=== PATIENT | male | born 1965 | race African-American/Black ===

== ENCOUNTER 2017-07-02 10:39 | Outpatient (CLI) | payer OTHER ==
[~2017-07-02 10:39] MED LIST: Iopamidol 370 76% 100 ML VIAL ONE
--- NOTE | 2017-07-02 16:41 | CT ---
CT PULMONARY ANGIOGRAM WITH IV CONTRAST AND 3D POSTPROCESSING: Date: 07/02/17 HISTORY: Prostate cancer. Left-sided chest pain and rib pain. IV CONTRAST: 98 mL [id number] injected intravenously. FINDINGS: No filling defects are seen in the contrast-opacified pulmonary arterial vasculature to suggest pulm onary embolism. The thoracic aorta is well opacified without aneurysm or dissection. No pleural or p ericardial effusions are identified. No pneumothoraces, focal areas of consolidation, lung nodules o r masses are seen. There are degenerative changes in the spine. There is a peripherally calcified sm all lesion in the left upper kidney, which is stable from 04/05/16. IMPRESSION: 1. No CT evidence of pulmonary embolism. 2. A bone scan would be helpful to evaluate left-sided rib pain. POS: [facility]
== END 2017-07-02 10:40 | disposition home or self-care (01) ==
LOC: SCSCT 10:39
PROVIDERS: ATTEND Internal Medicine Medical Oncology
DX: C61 Malignant neoplasm of prostate (principal); R07.81 Pleurodynia
CPT/HCPCS: 71275; 80053; 82248; 83615; 84100; 84153; 84550

== ENCOUNTER 2017-09-27 10:34 | Day surgery (SDC) | payer OTHER, SELFPAY ==
[2017-09-27] MEDS ORDERED: Sodium Chloride 0.9% 30 ML ONE (10:59)
[2017-09-27] MEDS ORDERED: ADMIXTURE FEE IVPB SCH (11:30)
[2017-09-27] MEDS ORDERED: DOCETAXEL IVPB SCH (11:30)
[2017-09-27] MEDS ORDERED: SODIUM CHLORIDE IVPB SCH (11:30)
[2017-09-27] MEDS ORDERED: Ondansetron 2MG/ML MDV 10 MG, Dexamethasone 10 MG, Admixture Fee 1 EACH in Sodium Chlor... IVP SCH (11:30)
[2017-09-27 11:31] VITALS: BP 128/80; TEMP 98.3
== END 2017-09-27 15:29 | disposition home or self-care (01) ==
LOC: ONC/OP 10:34
PROVIDERS: ATTEND Internal Medicine Medical Oncology
DX: Z51.11 Encounter for antineoplastic chemotherapy (principal); C61 Malignant neoplasm of prostate; I25.10 Atherosclerotic heart disease of native coronary artery without angina pectoris; I10 Essential (primary) hypertension; M19.90 Unspecified osteoarthritis, unspecified site; Z87.891 Personal history of nicotine dependence; Z79.52 Long term (current) use of systemic steroids; Z79.82 Long term (current) use of aspirin; Z79.01 Long term (current) use of anticoagulants; Z79.899 Other long term (current) drug therapy; Z80.1 Family history of malignant neoplasm of trachea, bronchus and lung; Z95.1 Presence of aortocoronary bypass graft; Z98.890 Other specified postprocedural states
CPT/HCPCS: 36415; 80053; 82248; 83615; 84100; 84153; 84550; 96413; A4216; J1100; J2405; J7050; J9171

== ENCOUNTER 2017-10-18 10:57 | Day surgery (SDC) | payer OTHER, MEDICAID ==
[2017-10-18] MEDS ORDERED: Ondansetron PF 4 MG/2 ML Vial SLOW IVP SCH (12:00)
[2017-10-18] MEDS ORDERED: DOCEtaxel 160 MG in Sodium Chloride 0.9% 250 ML 250 ML IVPB SCH (12:00)
[2017-10-18] MEDS ORDERED: Dexamethasone 10 MG/ML VIAL SLOW IVP SCH (12:00)
[2017-10-18] MEDS ORDERED: Sodium Chloride 0.9% 30 ML ONE (12:16)
[2017-10-18 12:59] VITALS: BP 108/58; TEMP 98.5
== END 2017-10-18 14:23 | disposition home or self-care (01) ==
LOC: ONC/OP 10:57
PROVIDERS: ATTEND Internal Medicine Medical Oncology
DX: Z51.11 Encounter for antineoplastic chemotherapy (principal); C61 Malignant neoplasm of prostate; I25.10 Atherosclerotic heart disease of native coronary artery without angina pectoris; I10 Essential (primary) hypertension; M19.90 Unspecified osteoarthritis, unspecified site; Z87.891 Personal history of nicotine dependence; Z79.52 Long term (current) use of systemic steroids; Z79.82 Long term (current) use of aspirin; Z79.01 Long term (current) use of anticoagulants; Z79.899 Other long term (current) drug therapy; Z80.1 Family history of malignant neoplasm of trachea, bronchus and lung; Z95.1 Presence of aortocoronary bypass graft; Z98.890 Other specified postprocedural states
CPT/HCPCS: 96375; 96413; J1100; J2405; J7050; J9171

== ENCOUNTER 2017-10-27 08:49 | Emergency (ER) | payer OTHER, SELFPAY ==
[2017-10-27 09:58] LABS: ALT (SGPT) 24 U/L (8-55); AST (SGOT) 20 U/L (5-34); Albumin 3.6 g/dL (3.5-5.0); Alkaline Phosphatase 49 U/L (40-150); Anion Gap 9 mmol/L (10-20); BUN (Urea Nitrogen) 11 mg/dL (8.4-25.7); Bilirubin, Total 0.2 mg/dL (0.2-1.2); Calc. Creatinine Clearance 0 mL/min (70-130); Calcium 8.6 mg/dL (7.8-10.44); Carbon Dioxide 31 mmol/L (22-29); Chloride 103 mmol/L (98-107); Estimated GFR-MDRD Greater than 90; Globulin 2.6 g/dL (2.4-3.5); Glucose 90 mg/dL (70-105); Potassium 3.7 mmol/L (3.5-5.1); Protein, Total 6.2 g/dL (6.0-8.3); Sodium 139 mmol/L (136-145)
[2017-10-27 10:25] LABS: Band 12 % (5-11); Lymphocytes 45 % (21-51); MDiff Complete? YES; Mean Corpuscular Hemoglobin 31.9 pg (27.0-31.0); Mean Corpuscular Volume 96.7 fl (80.0-94.0); Mean Platelet Volume 8.1 fL (7.4-10.4); Metamyelocyte 6 % (0-0); Monocytes 17 % (0-10); Myelocyte 1 % (0-0); Neutrophil 18 % (42-75); PLT Morphology Comment Appears Adequate; Platelet Count 203 thou/uL (130-400); RBC Distribution Width 13.5 % (11.5-14.5); RBC Morphology Normal; Reactive Lymphocytes 1 % (0-10); Red Blood Cell (RBC) Count 3.44 mill/uL (4.70-6.10); Reflex for Review?? YES; White Blood Cell (WBC) Count 1.9 thou/uL (4.8-10.8)
[2017-10-27 10:48] LABS: Bilirubin Negative (Negative); Blood, Urine Negative (Negative); Clarity Clear (Clear); Glucose, Urine (Dipstick) Negative (Negative); Leukocyte Negative (Negative); Nitrite Negative (Negative); Protein, Urine (Dipstick) Negative (Neg-Trace); Urobilinogen 0.2 mg/dL (0.2-1.0); pH, Urine 7.5 (5.0-9.0)
--- NOTE | 2017-10-27 11:12 | RAD ---
PORTABLE CHEST: Date: 10/27/17 PROVIDED CLINICAL HISTORY: Cough and congestion. FINDINGS: Comparison with 09/10/16. Cardiac and mediastinal silhouette is within normal limits. Median sternotomy changes are seen. Emphy sematous changes are suspected. No definite focal consolidation, pleural fluid, or pneumothorax appar ent. IMPRESSION: No evidence for an acute cardiopulmonary process. POS: [facility]
[2017-10-27] MEDS ORDERED: Cefepime 2 GM/10 ML SYR ONE (12:04)
[2017-10-27] MEDS ORDERED: Acetaminophen 325 MG TAB ONE (12:11)
== END 2017-10-27 13:10 | disposition home or self-care (01) ==
LOC: ERS 08:49
DX: J06.9 Acute upper respiratory infection, unspecified (principal); D70.9 Neutropenia, unspecified; I25.10 Atherosclerotic heart disease of native coronary artery without angina pectoris; I10 Essential (primary) hypertension; Z87.891 Personal history of nicotine dependence; Z79.899 Other long term (current) drug therapy; Z79.82 Long term (current) use of aspirin
CPT/HCPCS: 36415; 71045; 80053; 81003; 83605; 85025; 85060; 87040; 87086; 87804; 96361; 96374; J0692

== ENCOUNTER 2017-11-13 11:21 | Day surgery (SDC) | payer SELFPAY ==
[2017-11-13] MEDS ORDERED: Sodium Chloride 0.9% 50 ML ONE (11:27)
[2017-11-13] MEDS ORDERED: DOCEtaxel 160 MG in Sodium Chloride 0.9% 250 ML 250 ML IVPB SCH ×2 (11:45→13:00)
[2017-11-13] MEDS ORDERED: Ondansetron HCl/PF 4 MG/2 ML Vial SLOW IVP SCH (12:00)
[2017-11-13] MEDS ORDERED: Dexamethasone 10 MG/ML VIAL SLOW IVP SCH (12:00)
== END 2017-11-13 14:13 | disposition home or self-care (01) ==
LOC: ONC/OP 11:21
PROVIDERS: ATTEND Internal Medicine Medical Oncology
DX: Z51.11 Encounter for antineoplastic chemotherapy (principal); C61 Malignant neoplasm of prostate; I25.10 Atherosclerotic heart disease of native coronary artery without angina pectoris; I10 Essential (primary) hypertension; M19.90 Unspecified osteoarthritis, unspecified site; Z79.01 Long term (current) use of anticoagulants; Z79.82 Long term (current) use of aspirin; Z79.899 Other long term (current) drug therapy; Z87.891 Personal history of nicotine dependence
CPT/HCPCS: 96375; 96413; A4216; J1100; J2405; J7050; J9171

== ENCOUNTER 2017-12-27 10:07 | Outpatient (CLI) | payer OTHER | END 2017-12-27 10:08 | disposition home or self-care (01) | LOC: BICMAMMO 10:07 | PROVIDERS: ATTEND Internal Medicine Medical Oncology | DX: M89.8X9 Other specified disorders of bone, unspecified site (principal); C61 Malignant neoplasm of prostate; R69 Illness, unspecified | CPT/HCPCS: 77080 ==

== ENCOUNTER 2021-11-15 13:12 | Inpatient (IN) | payer MEDICARE ==
[~2021-11-15 13:12] MED LIST changes: +Heparin 1,000 UNITS/ML VIAL ONE; -Iopamidol 370 76% 100 ML VIAL ONE
[2021-11-15 13:45] LABS: #Eosinphils 0.1 thou/uL (0.0-0.7); #Lymphocytes 1.6 thou/uL (1.20-3.40); #Monocytes 0.4 thou/uL (0.11-0.59); #Neutrophils 2.2 thou/uL (1.40-6.50); %Basophils 0.6 % (0.0-1.0); %Eosinophils 1.3 % (0.0-10.0); %Lymphocytes 36.8 % (21.0-51.0); %Monocytes 10.2 % (0.0-10.0); %Neutrophils 51.1 % (42.0-75.0); Hemoglobin 13.4 g/dL (14.0-18.0); Mean Corpuscular Volume 99.9 fL (78.0-98.0); Mean Platelet Volume 8.8 fL (7.4-10.4); Platelet Count 208 thou/uL (130-400); RBC Distribution Width 13.2 % (11.5-14.5); Red Blood Cell (RBC) Count 4.18 mill/uL (4.70-6.10); White Blood Cell (WBC) Count 4.2 thou/uL (4.8-10.8)
[2021-11-15 14:03] LABS: ALT (SGPT) 46 U/L (8-55); AST (SGOT) 34 U/L (5-34); Albumin 3.7 g/dL (3.5-5.0); Alkaline Phosphatase 61 U/L (40-110); Anion Gap 12 mmol/L (10-20); BUN (Urea Nitrogen) 16 mg/dL (8.4-25.7); Bilirubin, Total 0.5 mg/dL (0.2-1.2); Calc. Creatinine Clearance 0 mL/min (70-130); Calcium 8.2 mg/dL (7.8-10.44); Carbon Dioxide 23 mmol/L (22-29); Chloride 108 mmol/L (98-107); Globulin 2.6 g/dL (2.4-3.5); Glucose 103 mg/dL (70-105); Potassium 4.3 mmol/L (3.5-5.1); Protein, Total 6.3 g/dL (6.0-8.3); Sodium 139 mmol/L (136-145)
[2021-11-15] MEDS ORDERED: cefTRIAXone\\ROCEPHIN 2 GM VIAL ONE (14:12)
[2021-11-15] MEDS ORDERED: methylPREDNISolone Sod Succ/PF 125 MG/2 ML VIAL ONE (14:12)
[2021-11-15] MEDS ORDERED: Furosemide 20 MG/2 ML VIAL ONE (14:15)
[2021-11-15] MEDS ORDERED: Acetaminophen 325 MG TAB PO PRN (16:30)
[2021-11-15] MEDS ORDERED: Ondansetron PF 4 MG/2 ML Vial IVP PRN (16:30)
[2021-11-15] MEDS ORDERED: HYDROcodone/Acetaminophen 5/325 mg Tablet PO PRN (16:31)
[2021-11-15] MEDS ORDERED: Metoprolol Tartrate 100 MG TAB PO SCH (16:45)
[2021-11-15] MEDS ORDERED: Diltiazem HCl SR 90 mg Capsule PO SCH ×2 (16:45→21:00)
[2021-11-15 17:15] LABS: Troponin I 0.022 ng/mL (< 0.028)
[2021-11-15 19:00] VITALS: BMI 29.7
[2021-11-15] MEDS: Apixaban 5 MG TAB PO SCH (20:08)
[2021-11-15] MEDS: Atorvastatin Calcium 40 MG TAB PO SCH (20:09)
[2021-11-15 20:12] LABS: Troponin I 0.017 ng/mL (< 0.028)
[2021-11-16 00:07] LABS: SARS-CoV-2 PCR by NAA Not Detected (NotDetected)
[2021-11-16 05:06] LABS: #Monocytes 0.3 thou/uL (0.11-0.59); #Neutrophils 5.3 thou/uL (1.40-6.50); %Basophils 0.2 % (0.0-1.0); %Eosinophils 0.1 % (0.0-10.0); %Lymphocytes 14.6 % (21.0-51.0); %Monocytes 4.1 % (0.0-10.0); Hemoglobin 13.5 g/dL (14.0-18.0); Mean Corpuscular HGB CONC 31.5 g/dL (32.0-36.0); Mean Corpuscular Hemoglobin 31.2 pg (27.0-31.0); Mean Platelet Volume 8.4 fL (7.4-10.4); Platelet Count 223 thou/uL (130-400); RBC Distribution Width 12.8 % (11.5-14.5); Red Blood Cell (RBC) Count 4.32 mill/uL (4.70-6.10); White Blood Cell (WBC) Count 6.6 thou/uL (4.8-10.8)
[2021-11-16 05:31] LABS: ALT (SGPT) 35 U/L (8-55); AST (SGOT) 19 U/L (5-34); Albumin 3.5 g/dL (3.5-5.0); Alkaline Phosphatase 56 U/L (40-110); Anion Gap 11 mmol/L (10-20); BUN (Urea Nitrogen) 13 mg/dL (8.4-25.7); Bilirubin, Total 0.3 mg/dL (0.2-1.2); Calc. Creatinine Clearance 135 mL/min (70-130); Calcium 8.1 mg/dL (7.8-10.44); Carbon Dioxide 28 mmol/L (22-29); Chloride 104 mmol/L (98-107); Globulin 2.6 g/dL (2.4-3.5); Glucose 130 mg/dL (70-105); Potassium 3.7 mmol/L (3.5-5.1); Protein, Total 6.1 g/dL (6.0-8.3); Sodium 139 mmol/L (136-145)
[2021-11-16 05:47] LABS: Thyroid Stimulating Hormone 0.3617 uIU/mL (0.35-4.94)
[2021-11-16] MEDS: HYDROcodone/Acetaminophen 5/325 mg Tablet PO PRN ×2 (08:58→20:54)
[2021-11-16] MEDS: Aspirin 325 mg Enteric Coated Tablet PO SCH (08:59)
[2021-11-16] MEDS: Apixaban 5 MG TAB PO SCH ×2 (08:59→20:52)
[2021-11-16] MEDS: Multivitamin W/ Minerals 1 TAB PO SCH (08:59)
[2021-11-16] MEDS ORDERED: SAW PALMETTO 80 MG PO SCH (09:00)
[2021-11-16] MEDS: Lisinopril 10 MG TAB PO SCH (09:00)
[2021-11-16] MEDS: Metoprolol Tartrate 100 MG TAB PO SCH ×2 (09:00→20:52)
[2021-11-16] MEDS: Tamsulosin HCl 0.4 MG CAP PO SCH (09:00)
[2021-11-16] MEDS: Diltiazem HCl SR 90 mg Capsule PO SCH ×2 (09:00→20:51)
[2021-11-16] MEDS ORDERED: Furosemide 20 MG/2 ML VIAL SLOW IVP SCH (15:00)
[2021-11-16] MEDS: Atorvastatin Calcium 40 MG TAB PO SCH (20:51)
[2021-11-16] MEDS: Amiodarone 200 MG TAB PO SCH (20:51)
[2021-11-16] MEDS ORDERED: Vancomycin 1 GM in Premix Bag 1 BAG IVPB SCH (21:50)
[2021-11-16] MEDS: VANCOMYCIN 2 GRAM/400 ML BAG 2 GM in Premix Bag 1 BAG IVPB SCH (22:41)
[2021-11-17] MEDS: Furosemide 20 MG/2 ML VIAL SLOW IVP SCH ×2 (05:02→14:31)
[2021-11-17] MEDS: Tamsulosin HCl 0.4 MG CAP PO SCH (08:58)
[2021-11-17] MEDS: Diltiazem HCl SR 90 mg Capsule PO SCH ×2 (08:58→19:50)
[2021-11-17] MEDS: Amiodarone 200 MG TAB PO SCH ×2 (08:58→19:50)
[2021-11-17] MEDS: Aspirin 325 mg Enteric Coated Tablet PO SCH (08:58)
[2021-11-17] MEDS: Lisinopril 10 MG TAB PO SCH (08:58)
[2021-11-17] MEDS: Multivitamin W/ Minerals 1 TAB PO SCH (08:58)
[2021-11-17] MEDS: Metoprolol Tartrate 100 MG TAB PO SCH ×2 (08:59→19:51)
[2021-11-17] MEDS: HYDROcodone/Acetaminophen 5/325 mg Tablet PO PRN ×2 (08:59→23:20)
[2021-11-17] MEDS: Apixaban 5 MG TAB PO SCH ×2 (09:00→19:51)
[2021-11-17] MEDS: VANCOMYCIN 2 GRAM/400 ML BAG 2 GM in Premix Bag 1 BAG IVPB SCH (11:23)
[2021-11-17] MEDS ORDERED: Sodium Chloride 0.9% 500 ML IV SCH ×2 (17:00→17:30)
[2021-11-17] MEDS: CEFAZOLIN 2 GM, IV Admixture Fee-Chemo 1 UNITS in Sodium Chloride 0.9% 100 ML IVPB SCH ×2 (17:16→23:17)
[2021-11-17] MEDS: Atorvastatin Calcium 40 MG TAB PO SCH (19:51)
[2021-11-18] MEDS ORDERED: PROPOFOL 20 ML ONE (08:31)
[2021-11-18] MEDS ORDERED: PROPOFOL 200 MG/20 ML VIAL ONE (08:31)
[2021-11-18] MEDS: CEFAZOLIN 2 GM, IV Admixture Fee-Chemo 1 UNITS in Sodium Chloride 0.9% 100 ML IVPB SCH ×2 (09:59→18:37)
[2021-11-18] MEDS: Apixaban 5 MG TAB PO SCH ×2 (09:59→21:23)
[2021-11-18] MEDS: Amiodarone 200 MG TAB PO SCH ×2 (09:59→21:23)
[2021-11-18] MEDS: Aspirin 325 mg Enteric Coated Tablet PO SCH (09:59)
[2021-11-18] MEDS: Tamsulosin HCl 0.4 MG CAP PO SCH (10:00)
[2021-11-18] MEDS: Metoprolol Tartrate 100 MG TAB PO SCH ×2 (10:00→22:00)
[2021-11-18] MEDS: Multivitamin W/ Minerals 1 TAB PO SCH (10:00)
[2021-11-18] MEDS: Lisinopril 10 MG TAB PO SCH (10:00)
[2021-11-18] MEDS: Diltiazem HCl SR 90 mg Capsule PO SCH (10:07)
[2021-11-18] MEDS: Atorvastatin Calcium 40 MG TAB PO SCH (21:22)
[2021-11-19] MEDS: CEFAZOLIN 2 GM, IV Admixture Fee-Chemo 1 UNITS in Sodium Chloride 0.9% 100 ML IVPB SCH ×4 (00:14→23:46)
[2021-11-19 04:34] LABS: #Basophils 0.1 thou/uL (0.0-0.2); #Eosinphils 0.1 thou/uL (0.0-0.7); #Lymphocytes 1.9 thou/uL (1.20-3.40); #Monocytes 0.6 thou/uL (0.11-0.59); #Neutrophils 1.9 thou/uL (1.40-6.50); %Basophils 2.1 % (0.0-1.0); %Eosinophils 2.1 % (0.0-10.0); %Lymphocytes 41.2 % (21.0-51.0); %Monocytes 12.4 % (0.0-10.0); %Neutrophils 42.3 % (42.0-75.0); Hemoglobin 12.8 g/dL (14.0-18.0); Mean Corpuscular HGB CONC 32.3 g/dL (32.0-36.0); Mean Corpuscular Hemoglobin 32.6 pg (27.0-31.0); Mean Platelet Volume 8.3 fL (7.4-10.4); Platelet Count 203 thou/uL (130-400); Red Blood Cell (RBC) Count 3.93 mill/uL (4.70-6.10); White Blood Cell (WBC) Count 4.5 thou/uL (4.8-10.8)
[2021-11-19 04:52] LABS: Anion Gap 10 mmol/L (10-20); BUN (Urea Nitrogen) 18 mg/dL (8.4-25.7); Calc. Creatinine Clearance 106 mL/min (70-130); Calcium 7.8 mg/dL (7.8-10.44); Carbon Dioxide 28 mmol/L (22-29); Chloride 105 mmol/L (98-107); Glucose 87 mg/dL (70-105); Potassium 3.9 mmol/L (3.5-5.1); Sodium 139 mmol/L (136-145)
[2021-11-19] MEDS: Aspirin 325 mg Enteric Coated Tablet PO SCH (08:21)
[2021-11-19] MEDS: Amiodarone 200 MG TAB PO SCH ×2 (08:21→20:19)
[2021-11-19] MEDS: Apixaban 5 MG TAB PO SCH ×2 (08:21→20:19)
[2021-11-19] MEDS: Tamsulosin HCl 0.4 MG CAP PO SCH (08:22)
[2021-11-19] MEDS: Lisinopril 10 MG TAB PO SCH (08:22)
[2021-11-19] MEDS: Metoprolol Tartrate 100 MG TAB PO SCH ×2 (08:22→20:19)
[2021-11-19] MEDS: Multivitamin W/ Minerals 1 TAB PO SCH (08:22)
[2021-11-19] MEDS: Atorvastatin Calcium 40 MG TAB PO SCH (20:19)
[2021-11-19] MEDS: Famotidine 20 MG TAB PO SCH (20:19)
[2021-11-19] MEDS: HYDROcodone/Acetaminophen 5/325 mg Tablet PO PRN (23:49)
[2021-11-20 05:10] LABS: #Eosinphils 0.1 thou/uL (0.0-0.7); #Lymphocytes 1.8 thou/uL (1.20-3.40); #Monocytes 0.5 thou/uL (0.11-0.59); #Neutrophils 2.7 thou/uL (1.40-6.50); %Basophils 0.2 % (0.0-1.0); %Eosinophils 2.6 % (0.0-10.0); %Lymphocytes 34.9 % (21.0-51.0); %Monocytes 9.3 % (0.0-10.0); %Neutrophils 52.9 % (42.0-75.0); Hemoglobin 13.3 g/dL (14.0-18.0); Mean Corpuscular HGB CONC 31.8 g/dL (32.0-36.0); Mean Corpuscular Hemoglobin 32.2 pg (27.0-31.0); Mean Platelet Volume 8.1 fL (7.4-10.4); Platelet Count 235 thou/uL (130-400); RBC Distribution Width 13.1 % (11.5-14.5); Red Blood Cell (RBC) Count 4.15 mill/uL (4.70-6.10); White Blood Cell (WBC) Count 5.1 thou/uL (4.8-10.8)
[2021-11-20 05:30] LABS: Anion Gap 11 mmol/L (10-20); BUN (Urea Nitrogen) 17 mg/dL (8.4-25.7); Calc. Creatinine Clearance 122 mL/min (70-130); Calcium 8.1 mg/dL (7.8-10.44); Carbon Dioxide 28 mmol/L (22-29); Chloride 105 mmol/L (98-107); Glucose 87 mg/dL (70-105); Sodium 140 mmol/L (136-145)
[2021-11-20] MEDS: CEFAZOLIN 2 GM, IV Admixture Fee-Chemo 1 UNITS in Sodium Chloride 0.9% 100 ML IVPB SCH ×2 (09:36→16:59)
[2021-11-20] MEDS: Spironolactone 25 MG TAB PO SCH (09:37)
[2021-11-20] MEDS: Amiodarone 200 MG TAB PO SCH ×2 (09:37→20:13)
[2021-11-20] MEDS: Aspirin 325 mg Enteric Coated Tablet PO SCH (09:38)
[2021-11-20] MEDS: Apixaban 5 MG TAB PO SCH ×2 (09:38→20:13)
[2021-11-20] MEDS: Famotidine 20 MG TAB PO SCH ×2 (09:38→20:13)
[2021-11-20] MEDS: Lisinopril 10 MG TAB PO SCH (09:39)
[2021-11-20] MEDS: Metoprolol Tartrate 100 MG TAB PO SCH ×2 (09:39→20:14)
[2021-11-20] MEDS: Multivitamin W/ Minerals 1 TAB PO SCH (09:39)
[2021-11-20] MEDS: Tamsulosin HCl 0.4 MG CAP PO SCH (09:40)
[2021-11-20] MEDS: Atorvastatin Calcium 40 MG TAB PO SCH (20:13)
[2021-11-21] MEDS: HYDROcodone/Acetaminophen 5/325 mg Tablet PO PRN ×3 (00:03→23:40)
[2021-11-21] MEDS: CEFAZOLIN 2 GM, IV Admixture Fee-Chemo 1 UNITS in Sodium Chloride 0.9% 100 ML IVPB SCH ×4 (00:04→23:41)
[2021-11-21 05:11] LABS: #Eosinphils 0.1 thou/uL (0.0-0.7); #Lymphocytes 1.8 thou/uL (1.20-3.40); #Monocytes 0.5 thou/uL (0.11-0.59); #Neutrophils 1.9 thou/uL (1.40-6.50); %Basophils 0.3 % (0.0-1.0); %Eosinophils 3.4 % (0.0-10.0); %Lymphocytes 41.4 % (21.0-51.0); %Neutrophils 42.9 % (42.0-75.0); Hemoglobin 13.7 g/dL (14.0-18.0); Mean Corpuscular HGB CONC 32.1 g/dL (32.0-36.0); Mean Corpuscular Hemoglobin 32.6 pg (27.0-31.0); Mean Platelet Volume 8.4 fL (7.4-10.4); Platelet Count 215 thou/uL (130-400); Red Blood Cell (RBC) Count 4.19 mill/uL (4.70-6.10); White Blood Cell (WBC) Count 4.4 thou/uL (4.8-10.8)
[2021-11-21 05:43] LABS: Anion Gap 10 mmol/L (10-20); BUN (Urea Nitrogen) 16 mg/dL (8.4-25.7); Calc. Creatinine Clearance 123 mL/min (70-130); Calcium 8.2 mg/dL (7.8-10.44); Carbon Dioxide 28 mmol/L (22-29); Chloride 106 mmol/L (98-107); Glucose 106 mg/dL (70-105); Potassium 3.9 mmol/L (3.5-5.1); Sodium 140 mmol/L (136-145)
[2021-11-21] MEDS: Lisinopril 10 MG TAB PO SCH (07:59)
[2021-11-21] MEDS: Metoprolol Tartrate 100 MG TAB PO SCH ×2 (07:59→21:29)
[2021-11-21] MEDS: Aspirin 325 mg Enteric Coated Tablet PO SCH (07:59)
[2021-11-21] MEDS: Spironolactone 25 MG TAB PO SCH (07:59)
[2021-11-21] MEDS: Amiodarone 200 MG TAB PO SCH ×2 (08:00→21:29)
[2021-11-21] MEDS: Apixaban 5 MG TAB PO SCH ×2 (08:00→21:29)
[2021-11-21] MEDS: Tamsulosin HCl 0.4 MG CAP PO SCH (08:00)
[2021-11-21] MEDS: Multivitamin W/ Minerals 1 TAB PO SCH (08:00)
[2021-11-21] MEDS: Famotidine 20 MG TAB PO SCH ×2 (08:00→21:29)
[2021-11-21] MEDS: Atorvastatin Calcium 40 MG TAB PO SCH (21:29)
[2021-11-22 05:35] LABS: #Eosinphils 0.2 thou/uL (0.0-0.7); #Lymphocytes 1.8 thou/uL (1.20-3.40); #Monocytes 0.5 thou/uL (0.11-0.59); %Basophils 0.5 % (0.0-1.0); %Eosinophils 4.2 % (0.0-10.0); %Lymphocytes 39.1 % (21.0-51.0); %Monocytes 11.8 % (0.0-10.0); %Neutrophils 44.4 % (42.0-75.0); Hemoglobin 12.9 g/dL (14.0-18.0); Mean Corpuscular HGB CONC 31.3 g/dL (32.0-36.0); Mean Corpuscular Hemoglobin 31.8 pg (27.0-31.0); Mean Platelet Volume 8.7 fL (7.4-10.4); Platelet Count 218 thou/uL (130-400); Red Blood Cell (RBC) Count 4.05 mill/uL (4.70-6.10); White Blood Cell (WBC) Count 4.6 thou/uL (4.8-10.8)
[2021-11-22 05:53] LABS: Anion Gap 9 mmol/L (10-20); BUN (Urea Nitrogen) 13 mg/dL (8.4-25.7); Calc. Creatinine Clearance 138 mL/min (70-130); Calcium 8.2 mg/dL (7.8-10.44); Carbon Dioxide 32 mmol/L (22-29); Chloride 103 mmol/L (98-107); Glucose 83 mg/dL (70-105); Potassium 4.2 mmol/L (3.5-5.1); Sodium 140 mmol/L (136-145)
[2021-11-22] MEDS: Aspirin 325 mg Enteric Coated Tablet PO SCH (08:45)
[2021-11-22] MEDS: Multivitamin W/ Minerals 1 TAB PO SCH (08:45)
[2021-11-22] MEDS: Amiodarone 200 MG TAB PO SCH ×2 (08:45→20:39)
[2021-11-22] MEDS: Tamsulosin HCl 0.4 MG CAP PO SCH (08:46)
[2021-11-22] MEDS: Spironolactone 25 MG TAB PO SCH (08:46)
[2021-11-22] MEDS: Metoprolol Tartrate 100 MG TAB PO SCH ×2 (08:46→20:39)
[2021-11-22] MEDS: Famotidine 20 MG TAB PO SCH ×2 (08:46→20:39)
[2021-11-22] MEDS: Apixaban 5 MG TAB PO SCH ×2 (08:46→20:39)
[2021-11-22] MEDS: CEFAZOLIN 2 GM, IV Admixture Fee-Chemo 1 UNITS in Sodium Chloride 0.9% 100 ML IVPB SCH ×2 (08:47→17:50)
[2021-11-22] MEDS: HYDROcodone/Acetaminophen 5/325 mg Tablet PO PRN (17:49)
[2021-11-22] MEDS: Atorvastatin Calcium 40 MG TAB PO SCH (20:39)
[2021-11-22] MEDS: Silver Sulfadiazine 50 GM TUBE TOP SCH (20:39)
[2021-11-23] MEDS: CEFAZOLIN 2 GM, IV Admixture Fee-Chemo 1 UNITS in Sodium Chloride 0.9% 100 ML IVPB SCH ×3 (00:02→16:15)
[2021-11-23] MEDS: HYDROcodone/Acetaminophen 5/325 mg Tablet PO PRN (00:03)
[2021-11-23 00:44] LABS: SARS-CoV-2 PCR by NAA Not Detected (NotDetected)
[2021-11-23] MEDS: Spironolactone 25 MG TAB PO SCH (08:37)
[2021-11-23] MEDS: Amiodarone 200 MG TAB PO SCH (08:38)
[2021-11-23] MEDS: Apixaban 5 MG TAB PO SCH (08:39)
[2021-11-23] MEDS: Famotidine 20 MG TAB PO SCH (08:39)
[2021-11-23] MEDS: Metoprolol Tartrate 100 MG TAB PO SCH (08:39)
[2021-11-23] MEDS: Aspirin 325 mg Enteric Coated Tablet PO SCH (08:39)
[2021-11-23] MEDS: Multivitamin W/ Minerals 1 TAB PO SCH (08:40)
[2021-11-23] MEDS: Silver Sulfadiazine 50 GM TUBE TOP SCH (08:41)
[2021-11-23] MEDS: Tamsulosin HCl 0.4 MG CAP PO SCH (08:42)
[2021-11-23 15:38] VITALS: BP 124/72; TEMP 98
[2021-11-23] MEDS ORDERED: Amiodarone 200 MG TAB PO SCH (21:00)
[2021-11-23] MEDS ORDERED: Metoprolol Tartrate 25 MG TAB PO SCH (21:00)
[2021-11-26] MEDS ORDERED: Amiodarone 200 MG TAB PO SCH (09:00)
== END 2021-11-23 17:21 | disposition home or self-care (01) | DRG 291 ==
LOC: ERS 13:12 → ERHOLD 15:06 → 2SW 18:30 → OBSVTOIN 11-16 15:10
PROVIDERS: ADMIT Internal Medicine; ATTEND Internal Medicine
PROC: 5A2204Z Restoration of Cardiac Rhythm, Single (ICD-10-PCS; principal; 2021-11-18)
PROC: B24BZZ4 Ultrasonography of Heart with Aorta, Transesophageal (ICD-10-PCS; 2021-11-18)
PROC: 02H633Z Insertion of Infusion Device into Right Atrium, Percutaneous Approach (ICD-10-PCS; 2021-11-21)
PROC: B548ZZA Ultrasonography of Superior Vena Cava, Guidance (ICD-10-PCS; 2021-11-21)
DX: I11.0 Hypertensive heart disease with heart failure (principal); I50.23 Acute on chronic systolic (congestive) heart failure; J96.00 Acute respiratory failure, unspecified whether with hypoxia or hypercapnia; J44.1 Chronic obstructive pulmonary disease with (acute) exacerbation; I48.21 Permanent atrial fibrillation; R78.81 Bacteremia; F17.210 Nicotine dependence, cigarettes, uncomplicated; E78.5 Hyperlipidemia, unspecified; N40.0 Benign prostatic hyperplasia without lower urinary tract symptoms; D53.9 Nutritional anemia, unspecified; I42.0 Dilated cardiomyopathy; I25.5 Ischemic cardiomyopathy; B95.61 Methicillin susceptible Staphylococcus aureus infection as the cause of diseases classified elsewhere; F10.10 Alcohol abuse, uncomplicated; I25.10 Atherosclerotic heart disease of native coronary artery without angina pectoris; Z79.899 Other long term (current) drug therapy; Z79.01 Long term (current) use of anticoagulants; Z95.1 Presence of aortocoronary bypass graft; Z28.311 Partially vaccinated for COVID-19; Z91.14 Patient's other noncompliance with medication regimen
CPT/HCPCS: 36415; 36569; 71045; 71046; 80048; 80053; 82607; 82746; 83605; 83880; 84443; 84484; 85025; 87040; 87077; 87149; 87186; 92960; 93005; 93306; 93312; 93798; 96365; 96375; C1751; G0378; J0690; J0696; J1644; J1940; J2704; J2930; J3370; J3490; J7030; J7620; U0003; U0005

== ENCOUNTER 2022-03-27 14:53 | Outpatient (CLI) | payer MEDICARE | END 2022-03-27 14:54 | disposition home or self-care (01) | LOC: SCSRAD 14:53 | PROVIDERS: ATTEND Family Medicine | DX: M54.16 Radiculopathy, lumbar region (principal); M25.551 Pain in right hip | CPT/HCPCS: 72100 ==

== ENCOUNTER 2022-04-18 09:56 | Emergency (ER) | payer MEDICARE ==
[2022-04-18] MEDS ORDERED: Morphine 4 MG/ML VIAL ONE (11:48)
[2022-04-18] MEDS ORDERED: Dexameth. Sod Phosp. 10 MG/ML (CHEMO USE ONLY) ONE (11:48)
== END 2022-04-18 12:24 | disposition home or self-care (01) ==
LOC: ERS 09:56
DX: M54.31 Sciatica, right side (principal); I48.91 Unspecified atrial fibrillation; E78.5 Hyperlipidemia, unspecified; I25.10 Atherosclerotic heart disease of native coronary artery without angina pectoris; F17.210 Nicotine dependence, cigarettes, uncomplicated; I10 Essential (primary) hypertension; Z79.82 Long term (current) use of aspirin; Z79.899 Other long term (current) drug therapy
CPT/HCPCS: 96372; 99283; J1100; J2270

== ENCOUNTER 2022-05-29 09:09 | Emergency (ER) | payer MEDICARE ==
[2022-05-29] MEDS ORDERED: HYDROmorphone 0.5 MG/0.5 ML SYRINGE ONE ×2 (10:07→13:16)
[2022-05-29 10:17] LABS: #Eosinphils 0.1 thou/uL (0.0-0.7); #Lymphocytes 0.8 thou/uL (1.20-3.40); #Monocytes 0.7 thou/uL (0.11-0.59); #Neutrophils 4.6 thou/uL (1.40-6.50); %Basophils 0.3 % (0.0-1.0); %Eosinophils 1.3 % (0.0-10.0); %Lymphocytes 12.3 % (21.0-51.0); %Monocytes 10.7 % (0.0-10.0); %Neutrophils 75.5 % (42.0-75.0); Hemoglobin 11.3 g/dL (14.0-18.0); Mean Corpuscular HGB CONC 32.4 g/dL (32.0-36.0); Mean Corpuscular Hemoglobin 31.5 pg (27.0-31.0); Mean Corpuscular Volume 97.2 fL (78.0-98.0); Mean Platelet Volume 8.2 fL (7.4-10.4); Platelet Count 242 thou/uL (130-400); RBC Distribution Width 12.5 % (11.5-14.5); Red Blood Cell (RBC) Count 3.57 mill/uL (4.70-6.10); White Blood Cell (WBC) Count 6.1 thou/uL (4.8-10.8)
[2022-05-29 10:29] LABS: ALT (SGPT) 10 U/L (8-55); AST (SGOT) 20 U/L (5-34); Albumin 4.2 g/dL (3.5-5.0); Alkaline Phosphatase 95 U/L (40-110); Anion Gap 15 mmol/L (10-20); BUN (Urea Nitrogen) 19 mg/dL (8.4-25.7); Bilirubin, Total 0.4 mg/dL (0.2-1.2); Calc. Creatinine Clearance 0 mL/min (70-130); Calcium 9.6 mg/dL (7.8-10.44); Carbon Dioxide 25 mmol/L (22-29); Chloride 102 mmol/L (98-107); Estimated GFR 52; Globulin 3.4 g/dL (2.4-3.5); Glucose 92 mg/dL (70-105); Magnesium 1.6 mg/dL (1.6-2.6); Potassium 4.1 mmol/L (3.5-5.1); Protein, Total 7.6 g/dL (6.0-8.3); Sodium 138 mmol/L (136-145)
[2022-05-29] MEDS ORDERED: Morphine 4 MG/ML VIAL ONE (11:11)
[2022-05-29] MEDS ORDERED: Acetaminophen 325 MG TAB ONE (13:15)
== END 2022-05-29 14:50 | disposition home or self-care (01) ==
LOC: ERS 09:09
DX: M79.10 Myalgia, unspecified site (principal); I11.0 Hypertensive heart disease with heart failure; I50.9 Heart failure, unspecified; I25.10 Atherosclerotic heart disease of native coronary artery without angina pectoris; E78.5 Hyperlipidemia, unspecified; Z95.5 Presence of coronary angioplasty implant and graft; Z87.891 Personal history of nicotine dependence
CPT/HCPCS: 36415; 80053; 83735; 85025; 96374; 96375; 96376; J1170; J2270

== ENCOUNTER 2022-07-24 07:03 | Day surgery (SDC) | payer MEDICARE ==
[2022-07-21 13:51] VITALS: BMI 27.8
[2022-07-24 09:15] VITALS: BP 108/73; TEMP 97.8
== END 2022-07-24 10:00 | disposition home or self-care (01) ==
LOC: SPEC 07:03
PROVIDERS: ATTEND Urology
PROC: 0TP5X0Z Removal of Drainage Device from Kidney, External Approach (ICD-10-PCS; principal; 2022-07-24)
PROC: 0T25X0Z Change Drainage Device in Kidney, External Approach (ICD-10-PCS; 2022-07-24)
DX: Z46.6 Encounter for fitting and adjustment of urinary device (principal); N13.5 Crossing vessel and stricture of ureter without hydronephrosis; N13.4 Hydroureter; C61 Malignant neoplasm of prostate; R59.0 Localized enlarged lymph nodes; Z79.01 Long term (current) use of anticoagulants; Z79.82 Long term (current) use of aspirin; Z79.890 Hormone replacement therapy; Z79.899 Other long term (current) drug therapy
CPT/HCPCS: 50431; 50435; C1729

== ENCOUNTER → 2022-09-26 | Day surgery (SDC) | payer MEDICARE ==
[2022-09-26 07:39] VITALS: BP 128/79; TEMP 97.6
== END | disposition home or self-care (01) ==
LOC: SPEC 07:03
PROVIDERS: ATTEND Urology
PROC: 0T25X0Z Change Drainage Device in Kidney, External Approach (ICD-10-PCS; principal; 2022-09-26)
DX: Z46.6 Encounter for fitting and adjustment of urinary device (principal); N13.5 Crossing vessel and stricture of ureter without hydronephrosis; N13.4 Hydroureter; C61 Malignant neoplasm of prostate; Z79.01 Long term (current) use of anticoagulants; Z79.82 Long term (current) use of aspirin; Z79.890 Hormone replacement therapy; Z79.899 Other long term (current) drug therapy
CPT/HCPCS: 50431; 50435; C1729

== ENCOUNTER 2022-09-30 13:56 | Inpatient (IN) | payer MEDICARE ==
[2022-09-30 15:49] LABS: #Eosinphils 0.1 thou/uL (0.0-0.7); #Lymphocytes 1.2 thou/uL (1.20-3.40); #Monocytes 0.3 thou/uL (0.11-0.59); #Neutrophils 0.9 thou/uL (1.40-6.50); %Eosinophils 4.5 % (0.0-10.0); %Lymphocytes 48.9 % (21.0-51.0); %Monocytes 11.5 % (0.0-10.0); Hemoglobin 11.7 g/dL (14.0-18.0); Mean Corpuscular HGB CONC 34.7 g/dL (32.0-36.0); Mean Corpuscular Hemoglobin 33.6 pg (27.0-31.0); Mean Corpuscular Volume 96.8 fl (78.0-98.0); Mean Platelet Volume 8.1 fL (7.4-10.4); Platelet Count 193 10x3/uL (130-400); RBC Distribution Width 13.3 % (11.5-14.5); Red Blood Cell (RBC) Count 3.47 mill/uL (4.70-6.10); White Blood Cell (WBC) Count 2.5 10x3/uL (4.8-10.8)
[2022-09-30 16:04] LABS: INR-International Normal Ratio 1.1; Prothrombin Time 14.6 sec (12.0-14.7)
[2022-09-30 16:05] LABS: PTT 37.8 sec (22.9-36.1)
[2022-09-30] MEDS ORDERED: cefTRIAXone\\ROCEPHIN 1 GM VIAL ONE (16:23)
[2022-09-30 16:25] LABS: ALT (SGPT) 10 U/L (8-55); AST (SGOT) 15 U/L (5-34); Albumin 3.7 g/dL (3.5-5.0); Alkaline Phosphatase 39 U/L (40-110); Anion Gap 13 mmol/L (10-20); BUN (Urea Nitrogen) 26 mg/dL (8.4-25.7); Bilirubin, Total 0.2 mg/dL (0.2-1.2); Calc. Creatinine Clearance 0 mL/min (70-130); Carbon Dioxide 24 mmol/L (22-29); Chloride 106 mmol/L (98-107); Estimated GFR 99; Globulin 2.9 g/dL (2.4-3.5); Glucose 111 mg/dL (70-105); Potassium 3.6 mmol/L (3.5-5.1); Protein, Total 6.6 g/dL (6.0-8.3); Sodium 139 mmol/L (136-145)
[2022-09-30] MEDS ORDERED: Vancomycin 1 GM/200 ML (FROZEN) BAG ONE (17:12)
[2022-09-30] MEDS ORDERED: Ondansetron PF 4 MG/2 ML Vial IVP PRN (18:47)
[2022-09-30] MEDS ORDERED: Acetaminophen 325 MG TAB PO PRN (18:47)
[2022-09-30] MEDS ORDERED: Ondansetron ODT 4 MG TAB PO PRN (18:47)
[2022-09-30] MEDS ORDERED: Atorvastatin Calcium 40 MG TAB PO SCH (21:00)
[2022-09-30 21:35] VITALS: BMI 28.3
[2022-09-30] MEDS ORDERED: Vancomycin 1 GM in Premix Bag 1 BAG IVPB SCH (22:15)
[2022-10-01] MEDS ORDERED: Levothyroxine Sodium 25 MCG TAB PO SCH (06:00)
[2022-10-01 06:23] LABS: #Eosinphils 0.1 thou/uL (0.0-0.7); #Lymphocytes 1.6 thou/uL (1.20-3.40); #Monocytes 0.4 thou/uL (0.11-0.59); #Neutrophils 1.1 thou/uL (1.40-6.50); %Eosinophils 3.7 % (0.0-10.0); %Lymphocytes 49.5 % (21.0-51.0); %Monocytes 12.9 % (0.0-10.0); %Neutrophils 32.9 % (42.0-75.0); Hemoglobin 12.3 g/dL (14.0-18.0); Mean Corpuscular HGB CONC 33.8 g/dL (32.0-36.0); Mean Corpuscular Hemoglobin 32.8 pg (27.0-31.0); Mean Corpuscular Volume 97.1 fl (78.0-98.0); Mean Platelet Volume 8.6 fL (7.4-10.4); Platelet Count 188 10x3/uL (130-400); RBC Distribution Width 13.5 % (11.5-14.5); Red Blood Cell (RBC) Count 3.76 mill/uL (4.70-6.10); White Blood Cell (WBC) Count 3.3 10x3/uL (4.8-10.8)
[2022-10-01 06:44] LABS: Anion Gap 13 mmol/L (10-20); BUN (Urea Nitrogen) 18 mg/dL (8.4-25.7); Calc. Creatinine Clearance 134 mL/min (70-130); Calcium 9.1 mg/dL (7.8-10.44); Carbon Dioxide 25 mmol/L (22-29); Chloride 107 mmol/L (98-107); Estimated GFR 103; Glucose 86 mg/dL (70-105); Potassium 3.2 mmol/L (3.5-5.1); Sodium 142 mmol/L (136-145)
[2022-10-01] MEDS ORDERED: Potassium Chloride 40 MEQ in Premix Bag 1 BAG IVPB SCH (08:15)
[2022-10-01] MEDS ORDERED: Non-Formulary Item 1 EACH (Enzalutamide [Xtandi] 40 MG Capsule) PO SCH (09:00)
[2022-10-01] MEDS ORDERED: FLU VACC QS2022-23(6MOS UP)/PF 60 MCG/0.5 ML SYRINGE IM ONE (09:00)
[2022-10-01] MEDS ORDERED: Carvedilol 6.25 MG TAB PO SCH (09:00)
[2022-10-01] MEDS ORDERED: Amiodarone 200 MG TAB PO SCH (09:00)
[2022-10-01] MEDS ORDERED: Vancomycin 1.5 GRAM/300 ML BAG 1.5 GM in Premix Bag 1 BAG IVPB SCH (09:00)
[2022-10-01] MEDS ORDERED: Tamsulosin HCl 0.4 MG CAP PO SCH (09:00)
[2022-10-01] MEDS ORDERED: HYDROcodone/Acetaminophen 10/325 mg Tablet PO PRN (09:17)
[2022-10-01] MEDS ORDERED: Iopamidol 300 61% 100 ML VIAL FS ONE (10:04)
[2022-10-01 11:52] VITALS: BP 103/62; TEMP 98.4
[2022-10-01] MEDS: Potassium Chloride 20 MEQ in Premix Bag 1 BAG IVPB SCH ×2 (12:28→12:47)
[2022-10-01] MEDS ORDERED: cefTRIAXone\\ROCEPHIN 1 GM in Sodium Chloride 0.9% 100 ML IVPB SCH (16:00)
== END 2022-10-01 13:07 | disposition home or self-care (01) | DRG 699 ==
LOC: ERS 13:56 → T4-A 17:49
PROVIDERS: ADMIT Family Medicine; ATTEND Internal Medicine
PROC: 0T25X0Z Change Drainage Device in Kidney, External Approach (ICD-10-PCS; principal; 2022-10-01)
DX: N99.522 Malfunction of incontinent external stoma of urinary tract (principal); I42.9 Cardiomyopathy, unspecified; Y83.8 Other surgical procedures as the cause of abnormal reaction of the patient, or of later complication, without mention of misadventure at the time of the procedure; E78.5 Hyperlipidemia, unspecified; I25.10 Atherosclerotic heart disease of native coronary artery without angina pectoris; N40.0 Benign prostatic hyperplasia without lower urinary tract symptoms; I48.0 Paroxysmal atrial fibrillation; C61 Malignant neoplasm of prostate; F17.210 Nicotine dependence, cigarettes, uncomplicated; Z95.5 Presence of coronary angioplasty implant and graft; Z79.82 Long term (current) use of aspirin; Z79.899 Other long term (current) drug therapy; Z79.01 Long term (current) use of anticoagulants; Z95.1 Presence of aortocoronary bypass graft; Z79.890 Hormone replacement therapy
CPT/HCPCS: 36415; 50431; 50435; 80048; 80053; 85025; 85610; 85730; 86850; 86900; 86901; 96365; 96366; 96367; C1729; J0696; J3370; J3370-JW; J3480; Q9967; U0003; U0005

== ENCOUNTER → 2022-11-27 | Day surgery (SDC) | payer MEDICARE ==
[2022-11-22 14:55] VITALS: BMI 28.4
[~2022-11-27] MED LIST changes: -Heparin 1,000 UNITS/ML VIAL ONE; +Iopamidol 300 61% 100 ML VIAL FS ONE
[2022-11-27 07:44] VITALS: BP 118/77; TEMP 98.8
== END | disposition home or self-care (01) ==
LOC: SPEC 07:15
PROVIDERS: ATTEND Urology
PROC: 0T25X0Z Change Drainage Device in Kidney, External Approach (ICD-10-PCS; principal; 2022-11-27)
DX: Z43.6 Encounter for attention to other artificial openings of urinary tract (principal); N13.5 Crossing vessel and stricture of ureter without hydronephrosis; C61 Malignant neoplasm of prostate; Z79.82 Long term (current) use of aspirin; Z79.01 Long term (current) use of anticoagulants; Z79.899 Other long term (current) drug therapy
CPT/HCPCS: 50431; 50435; C1729; Q9967

== ENCOUNTER 2023-03-02 07:25 | Day surgery (SDC) | payer MEDICARE ==
[2023-03-02 13:07] VITALS: BP 136/70
== END 2023-03-02 09:55 | disposition home or self-care (01) ==
LOC: SPEC 07:25
PROVIDERS: ATTEND Urology
DX: N13.5 Crossing vessel and stricture of ureter without hydronephrosis (principal)
CPT/HCPCS: 50431; 50435; C1729

== ENCOUNTER 2023-07-06 10:17 | Inpatient (IN) | payer MEDICARE ==
[2023-07-06 11:46] LABS: #Eosinphils 0.2 thou/uL (0.0-0.7); #Monocytes 0.6 thou/uL (0.11-0.59); %Basophils 0.5 % (0.0-1.0); %Eosinophils 5.1 % (0.0-10.0); %Lymphocytes 28.3 % (21.0-51.0); %Neutrophils 51.8 % (42.0-75.0); Hematocrit 31.3 % (42.0-52.0); Mean Corpuscular HGB CONC 31.9 g/dL (32.0-36.0); Mean Corpuscular Hemoglobin 31.1 pg (27.0-31.0); Mean Corpuscular Volume 97.2 fl (78.0-98.0); Mean Platelet Volume 10.4 fL (7.4-10.4); Platelet Count 259 10x3/uL (130-400); RBC Distribution Width 13.6 % (11.5-14.5); Red Blood Cell (RBC) Count 3.22 mill/uL (4.70-6.10); White Blood Cell (WBC) Count 3.9 10x3/uL (4.8-10.8)
[2023-07-06 12:08] LABS: ALT (SGPT) 7 U/L (8-55); AST (SGOT) 10 U/L (5-34); Albumin 3.7 g/dL (3.5-5.0); Alkaline Phosphatase 65 U/L (40-110); Anion Gap 11 mmol/L (10-20); BUN (Urea Nitrogen) 19 mg/dL (8.4-25.7); Bilirubin, Total 0.2 mg/dL (0.2-1.2); Calc. Creatinine Clearance 0 mL/min (70-130); Calcium 8.6 mg/dL (7.8-10.44); Carbon Dioxide 28 mmol/L (22-29); Chloride 108 mmol/L (98-107); Estimated GFR 87; Globulin 2.9 g/dL (2.4-3.5); Glucose 94 mg/dL (70-105); Potassium 3.6 mmol/L (3.5-5.1); Protein, Total 6.6 g/dL (6.0-8.3); Sodium 143 mmol/L (136-145)
[2023-07-06 13:58] LABS: Bacteria/HPF 4+ HPF (None Seen); Bilirubin Negative (Negative); Blood, Urine 3+ (Negative); CAUTI Indications for Culture Pelvic or flank pain; Clarity Turbid (Clear); Glucose, Urine (Dipstick) Normal (Negative); Ketone, Urine Negative (Negative); Leukocyte 500 Leu/uL (Negative); Nitrite Negative (Negative); Protein, Urine (Dipstick) 50 mg/dL (Neg-Trace); RBC/HPF Greater than 50 HPF (0-3); Specific Gravity, Urine 1.017 (1.002-1.036); Squamous Epithelial 0-3 HPF (0-3); Urobilinogen Normal mg/dL (Less than 2); WBC/HPF Greater than 50 HPF (0-3)
[2023-07-06 13:59] LABS: Urine Culture Reflex Yes Yes
[2023-07-06] MEDS ORDERED: Sodium Chloride 0.9% 100 ML ONE (14:49)
[2023-07-06] MEDS ORDERED: Cefepime 2 GM VIAL ONE (14:49)
[2023-07-06] MEDS ORDERED: Ondansetron ODT 4 MG TAB PO PRN (16:53)
[2023-07-06] MEDS ORDERED: Acetaminophen 325 MG TAB PO PRN (16:53)
[2023-07-06] MEDS ORDERED: Ondansetron PF 4 MG/2 ML Vial IVP PRN (16:53)
[2023-07-06] MEDS ORDERED: Electrolyte Replacement Protocol 1 EACH FS SCH (17:00)
[2023-07-06] MEDS ORDERED: Albuterol 200 PUFF (6.7GM INHALER) INH PRN (17:03)
[2023-07-06 17:50] VITALS: BMI 30.5
[2023-07-06] MEDS: Sacubitril 24MG/Valsartan 26 MG TAB PO SCH (20:18)
[2023-07-06] MEDS: Atorvastatin Calcium 40 MG TAB PO SCH (20:18)
[2023-07-06] MEDS: Tamsulosin HCl 0.4 MG CAP PO SCH (20:18)
[2023-07-06] MEDS: Carvedilol 6.25 MG TAB PO SCH (20:18)
[2023-07-06] MEDS: tiZANidine HCl 4 MG TAB PO SCH (20:18)
[2023-07-06] MEDS: HYDROcodone/Acetaminophen 10/325 mg Tablet PO PRN (20:28)
[2023-07-07] MEDS: Cefepime 2 GM in Sodium Chloride 0.9% 100 ML IVPB SCH ×2 (02:50→14:09)
[2023-07-07 06:00] LABS: #Eosinphils 0.2 thou/uL (0.0-0.7); #Monocytes 0.6 thou/uL (0.11-0.59); #Neutrophils 1.6 thou/uL (1.40-6.50); %Basophils 0.5 % (0.0-1.0); %Eosinophils 5.3 % (0.0-10.0); %Lymphocytes 36.5 % (21.0-51.0); %Monocytes 14.6 % (0.0-10.0); %Neutrophils 43.1 % (42.0-75.0); Hemoglobin 10.1 g/dL (14.0-18.0); Mean Corpuscular HGB CONC 31.6 g/dL (32.0-36.0); Mean Corpuscular Hemoglobin 30.8 pg (27.0-31.0); Mean Corpuscular Volume 97.6 fl (78.0-98.0); Mean Platelet Volume 10.8 fL (7.4-10.4); Platelet Count 273 10x3/uL (130-400); RBC Distribution Width 13.7 % (11.5-14.5); Red Blood Cell (RBC) Count 3.28 mill/uL (4.70-6.10); White Blood Cell (WBC) Count 3.8 10x3/uL (4.8-10.8)
[2023-07-07 06:30] LABS: ALT (SGPT) 7 U/L (8-55); AST (SGOT) 9 U/L (5-34); Albumin 3.5 g/dL (3.5-5.0); Alkaline Phosphatase 62 U/L (40-110); Anion Gap 9 mmol/L (10-20); BUN (Urea Nitrogen) 16 mg/dL (8.4-25.7); Bilirubin, Total 0.2 mg/dL (0.2-1.2); Calc. Creatinine Clearance 116 mL/min (70-130); Calcium 8.4 mg/dL (7.8-10.44); Carbon Dioxide 31 mmol/L (22-29); Chloride 108 mmol/L (98-107); Estimated GFR 88; Globulin 2.9 g/dL (2.4-3.5); Glucose 95 mg/dL (70-105); Potassium 3.7 mmol/L (3.5-5.1); Protein, Total 6.4 g/dL (6.0-8.3); Sodium 144 mmol/L (136-145)
[2023-07-07] MEDS: Docusate 100 MG CAP PO SCH (09:10)
[2023-07-07] MEDS: Multivitamin W/ Minerals 1 TAB PO SCH (09:10)
[2023-07-07] MEDS: Tamsulosin HCl 0.4 MG CAP PO SCH ×2 (09:10→20:19)
[2023-07-07] MEDS: Calcium Carbonate 600 MG TAB PO SCH (09:10)
[2023-07-07] MEDS: Sacubitril 24MG/Valsartan 26 MG TAB PO SCH ×2 (09:10→20:19)
[2023-07-07] MEDS: Carvedilol 6.25 MG TAB PO SCH ×2 (09:11→20:19)
[2023-07-07] MEDS: HYDROcodone/Acetaminophen 10/325 mg Tablet PO PRN ×2 (09:14→20:19)
[2023-07-07] MEDS: Amiodarone 200 MG TAB PO SCH (09:16)
[2023-07-07] MEDS: tiZANidine HCl 4 MG TAB PO SCH (20:19)
[2023-07-07] MEDS: Atorvastatin Calcium 40 MG TAB PO SCH (20:19)
[2023-07-08] MEDS: Cefepime 2 GM in Sodium Chloride 0.9% 100 ML IVPB SCH ×2 (02:38→15:36)
[2023-07-08 06:30] LABS: ALT (SGPT) 7 U/L (8-55); AST (SGOT) 9 U/L (5-34); Albumin 3.4 g/dL (3.5-5.0); Alkaline Phosphatase 57 U/L (40-110); Anion Gap 10 mmol/L (10-20); BUN (Urea Nitrogen) 16 mg/dL (8.4-25.7); Bilirubin, Total 0.2 mg/dL (0.2-1.2); Calc. Creatinine Clearance 129 mL/min (70-130); Calcium 8.6 mg/dL (7.8-10.44); Carbon Dioxide 32 mmol/L (22-29); Chloride 105 mmol/L (98-107); Estimated GFR 99; Globulin 2.9 g/dL (2.4-3.5); Glucose 91 mg/dL (70-105); Potassium 3.5 mmol/L (3.5-5.1); Protein, Total 6.3 g/dL (6.0-8.3); Sodium 143 mmol/L (136-145)
[2023-07-08] MEDS ORDERED: Potassium Chloride 20 MEQ TAB PO SCH (08:00)
[2023-07-08] MEDS: Calcium Carbonate 600 MG TAB PO SCH (09:13)
[2023-07-08] MEDS: HYDROcodone/Acetaminophen 10/325 mg Tablet PO PRN ×2 (09:14→20:55)
[2023-07-08] MEDS: Multivitamin W/ Minerals 1 TAB PO SCH (09:14)
[2023-07-08] MEDS: Tamsulosin HCl 0.4 MG CAP PO SCH ×2 (09:14→20:54)
[2023-07-08] MEDS: Docusate 100 MG CAP PO SCH (09:14)
[2023-07-08] MEDS: Amiodarone 200 MG TAB PO SCH (09:14)
[2023-07-08] MEDS: Carvedilol 6.25 MG TAB PO SCH ×2 (09:14→20:54)
[2023-07-08] MEDS: Sacubitril 24MG/Valsartan 26 MG TAB PO SCH ×2 (09:14→20:54)
[2023-07-08 12:01] LABS: Potassium 3.7 mmol/L (3.5-5.1)
[2023-07-08] MEDS: tiZANidine HCl 4 MG TAB PO SCH (20:54)
[2023-07-08] MEDS: Atorvastatin Calcium 40 MG TAB PO SCH (20:54)
[2023-07-09] MEDS: Cefepime 2 GM in Sodium Chloride 0.9% 100 ML IVPB SCH (04:43)
[2023-07-09 08:52] VITALS: TEMP 97.9
[2023-07-09] MEDS: Tamsulosin HCl 0.4 MG CAP PO SCH (09:54)
[2023-07-09] MEDS: Calcium Carbonate 600 MG TAB PO SCH (09:54)
[2023-07-09] MEDS: Carvedilol 6.25 MG TAB PO SCH (09:54)
[2023-07-09] MEDS: Docusate 100 MG CAP PO SCH (09:54)
[2023-07-09] MEDS: Amiodarone 200 MG TAB PO SCH (09:54)
[2023-07-09] MEDS: Sacubitril 24MG/Valsartan 26 MG TAB PO SCH (09:54)
[2023-07-09] MEDS: Multivitamin W/ Minerals 1 TAB PO SCH (09:54)
[2023-07-09 09:56] VITALS: BP 151/77
[2023-07-09] MEDS: HYDROcodone/Acetaminophen 10/325 mg Tablet PO PRN (09:58)
[2023-07-09] MEDS ORDERED: Iopamidol 300 61% 100 ML VIAL FS ONE (11:28)
== END 2023-07-09 11:40 | disposition home or self-care (01) | DRG 699 ==
LOC: ERS 10:17 → T4-B 15:28
PROVIDERS: ADMIT Internal Medicine; ATTEND Internal Medicine
PROC: 0T25X0Z Change Drainage Device in Kidney, External Approach (ICD-10-PCS; principal; 2023-07-09)
DX: T83.092A Other mechanical complication of nephrostomy catheter, initial encounter (principal); I50.42 Chronic combined systolic (congestive) and diastolic (congestive) heart failure; I48.0 Paroxysmal atrial fibrillation; I11.0 Hypertensive heart disease with heart failure; I25.10 Atherosclerotic heart disease of native coronary artery without angina pectoris; E78.5 Hyperlipidemia, unspecified; Z79.899 Other long term (current) drug therapy; Z79.82 Long term (current) use of aspirin; Z85.46 Personal history of malignant neoplasm of prostate; Z79.01 Long term (current) use of anticoagulants; Z95.1 Presence of aortocoronary bypass graft; Z98.890 Other specified postprocedural states
CPT/HCPCS: 36415; 50435; 74176; 80053; 81001; 85025; 87077; 87086; 87186; 96365; C1729; C1769; J0692; J3490; Q9967

== ENCOUNTER → 2023-11-14 | Day surgery (SDC) | payer MEDICARE ==
[~2023-11-14] MED LIST changes: +Iopamidol 100 ML FS ONE; -Iopamidol 300 61% 100 ML VIAL FS ONE; +Lidocaine 1% PF 5 ML VIAL ONE; +Lidocaine 1% w/Epinephrine 1:100K 20 ML VIAL ONE; +Sodium Bicarbonate 2.5 MEQ/5 ML SDV ONE; +Sodium Chloride 0.9% 500 ML ONE
== END ==
LOC: SPEC 06:53
PROVIDERS: ATTEND Urology
PROC: 0T25X0Z Change Drainage Device in Kidney, External Approach (ICD-10-PCS; principal; 2023-11-14)
DX: N13.5 Crossing vessel and stricture of ureter without hydronephrosis (principal); C61 Malignant neoplasm of prostate; Z43.6 Encounter for attention to other artificial openings of urinary tract
CPT/HCPCS: 50434; 50435; J7030; Q9967

== ENCOUNTER → 2024-01-21 | Day surgery (SDC) | payer MEDICARE ==
[~2024-01-21] MED LIST changes: -Lidocaine 1% PF 5 ML VIAL ONE; -Lidocaine 1% w/Epinephrine 1:100K 20 ML VIAL ONE
== END ==
LOC: SPEC 07:52
PROVIDERS: ATTEND Urology
PROC: 0T25X0Z Change Drainage Device in Kidney, External Approach (ICD-10-PCS; principal; 2024-01-21)
DX: N13.5 Crossing vessel and stricture of ureter without hydronephrosis (principal)
CPT/HCPCS: 50435; 75984; C1729; C1769; J7030; Q9967

== ENCOUNTER 2024-02-01 15:04 | Outpatient (CLI) | payer MEDICARE ==
[2024-02-01 16:45] LABS: Bilirubin Neg (Negative); Blood, Urine 250 (Negative); Clarity Cloudy (Clear); Glucose, Urine (Dipstick) Normal (Negative); Ketone, Urine Negative (Negative); Leukocyte 500 (Negative); Nitrite Negative (Negative); PTT 30.6 sec (22.0-33.0); Protein, Urine (Dipstick) 100 mg/dl (Neg-Trace); Prothrombin Time 11.2 sec (9.5-12.1); Specific Gravity, Urine 1.015 (1.005-1.030); Urobilinogen Normal mg/dL (Less than 2); pH, Urine 6.5 (5.0-9.0)
[2024-02-01 16:46] LABS: Hematocrit 34.8 % (38.8-50.0); Hemoglobin 11.6 g/dL (13.5-17.5); Mean Corpuscular HGB CONC 33.3 g/dL (32.0-36.0); Mean Platelet Volume 10.8 fL (7.4-10.4); Platelet Count 239 10x3/uL (150-450); RBC Distribution Width 14.6 % (11.5-14.5); Red Blood Cell (RBC) Count 3.74 10x6/uL (4.32-5.72); White Blood Cell (WBC) Count 4.1 10x3/uL (3.5-10.5)
[2024-02-01 17:06] LABS: Anion Gap 12 mmol/L (10-20); BUN (Urea Nitrogen) 31 mg/dL (8.4-25.7); Calc. Creatinine Clearance 0 mL/min (70-130); Calcium 8.8 mg/dL (7.8-10.44); Carbon Dioxide 24 mmol/L (22-29); Chloride 106 mmol/L (98-107); Estimated GFR 80; Glucose 114 mg/dL (70-105); Potassium 3.9 mmol/L (3.5-5.1); Sodium 138 mmol/L (136-145)
[2024-02-01 17:26] LABS: Bacteria/HPF 1+ HPF (None Seen); Mucous/LPF Rare LPF (<2+); RBC/HPF Greater than 50 HPF (0-3); Squamous Epithelial 0-3 HPF (0-3); WBC/HPF Greater Than 50 HPF (0-3)
== END 2024-02-01 15:05 | disposition home or self-care (01) ==
LOC: LABBT 15:04
PROVIDERS: ATTEND Urology
DX: Z01.812 Encounter for preprocedural laboratory examination (principal); C61 Malignant neoplasm of prostate; I50.22 Chronic systolic (congestive) heart failure; I25.811 Atherosclerosis of native coronary artery of transplanted heart without angina pectoris; N32.0 Bladder-neck obstruction; N13.5 Crossing vessel and stricture of ureter without hydronephrosis; N52.35 Erectile dysfunction following radiation therapy; I48.91 Unspecified atrial fibrillation; N40.3 Nodular prostate with lower urinary tract symptoms; N99.115 Postprocedural fossa navicularis urethral stricture; R68.2 Dry mouth, unspecified; R39.15 Urgency of urination; Z95.1 Presence of aortocoronary bypass graft
CPT/HCPCS: 80048; 81001; 85027; 85610; 85730; 87077; 87086; 87186

== ENCOUNTER 2024-02-15 06:23 | Day surgery (SDC) | payer MEDICARE ==
[2024-02-01 15:36] VITALS: BMI 30.1
[2024-02-15] MEDS ORDERED: LevoFLOXacin D5W 500 mg (100 mL) BAG ONE (06:45)
[2024-02-15] MEDS ORDERED: PROPOFOL 20 ML ONE ×2 (08:28→09:10)
[2024-02-15] MEDS ORDERED: fentaNYL PF 100 MCG/2 ML SYRINGE ONE (08:30)
[2024-02-15] MEDS ORDERED: PHENYLEPHRINE-NS 100 MCG/ML 10 ML SYRINGE ONE (08:36)
[2024-02-15] MEDS ORDERED: Lidocaine 1% PF 5 ML VIAL ONE (08:57)
[2024-02-15] MEDS ORDERED: Midazolam HCl 2 mg/2 ml Vial ONE (09:11)
[2024-02-15] MEDS ORDERED: Ondansetron PF 4 MG/2 ML Vial ONE (09:14)
[2024-02-15] MEDS ORDERED: Iopamidol 45 ML ONE (09:26)
[2024-02-15] MEDS ORDERED: Oxybutynin 5 MG TAB ONE (10:01)
[2024-02-15] MEDS ORDERED: Phenazopyridine HCl 100 MG TAB ONE (10:01)
[2024-02-15] MEDS ORDERED: fentaNYL 50 mcg/mL 1 mL Vial ONE (10:19)
== END 2024-02-15 11:55 | disposition home or self-care (01) ==
LOC: SDC 06:23
PROVIDERS: ATTEND Urology
PROC: 0TC68ZZ Extirpation of Matter from Right Ureter, Via Natural or Artificial Opening Endoscopic (ICD-10-PCS; principal; 2024-02-15)
PROC: 0T768DZ Dilation of Right Ureter with Intraluminal Device, Via Natural or Artificial Opening Endoscopic (ICD-10-PCS; 2024-02-15)
DX: N20.1 Calculus of ureter (principal); N13.5 Crossing vessel and stricture of ureter without hydronephrosis; I10 Essential (primary) hypertension; Z79.82 Long term (current) use of aspirin; Z79.01 Long term (current) use of anticoagulants; Z79.899 Other long term (current) drug therapy
CPT/HCPCS: 52356; 82365; C1769; C2617; J1956; J2250; J2405; J2704; J3010; Q9967; 88300

== ENCOUNTER → 2024-06-25 | Day surgery (SDC) | payer MEDICARE ==
[~2024-06-25] MED LIST changes: -Iopamidol 100 ML FS ONE; +Iopamidol 30 ML ONE; +Lidocaine 1% w/Epinephrine 1:100K 20 ML VIAL ONE
== END ==
LOC: SPEC 07:22
PROVIDERS: ATTEND Urology
PROC: 0T25X0Z Change Drainage Device in Kidney, External Approach (ICD-10-PCS; principal; 2024-06-25)
DX: N13.5 Crossing vessel and stricture of ureter without hydronephrosis (principal)
CPT/HCPCS: 50435; 75984; C1769 ×2; J7030; Q9967; C1729

== ENCOUNTER 2024-08-25 07:18 | Day surgery (SDC) | payer MEDICARE ==
[2024-08-25] MEDS ORDERED: Lidocaine 1% w/Epinephrine 1:100K 20 ML VIAL ONE (07:30)
[2024-08-25] MEDS ORDERED: Iopamidol 100 ML FS ONE (07:30)
[2024-08-25] MEDS ORDERED: Sodium Bicarbonate 2.5 MEQ/5 ML SDV ONE (07:30)
[2024-08-25] MEDS ORDERED: Sodium Chloride 0.9% 500 ML ONE (07:30)
[2024-08-25 07:41] LABS: #Basophils Less than 0.03 10x3/uL (0.0-0.2); %Basophils 0.3 % (0.0-1.0); %Eosinophils 3.5 % (0.0-10.0); %Lymphocytes 38.9 % (21.0-51.0); %Monocytes 12.2 % (0.0-10.0); %Neutrophils 44.8 % (42.0-75.0); Hematocrit 35.9 % (42.0-52.0); Hemoglobin 11.5 g/dL (14.0-18.0); Mean Corpuscular Hemoglobin 29.3 pg (27.0-31.0); Mean Corpuscular Volume 91.6 fL (78.0-98.0); Mean Platelet Volume 9.4 fL (7.4-10.4); Platelet Count 248 10x3/uL (130-400); RBC Distribution Width 15.2 % (11.5-14.5); Red Blood Cell (RBC) Count 3.92 mill/uL (4.70-6.10)
[2024-08-25 07:56] LABS: Prothrombin Time 13.6 sec (12.0-14.7)
[2024-08-25 07:57] LABS: PTT 32.3 sec (22.9-36.1)
[2024-08-25] MEDS ORDERED: cefTRIAXone\\ROCEPHIN 1 GM in Sodium Chloride 0.9% 100 ML IVPB SCH (08:15)
[2024-08-25] MEDS ORDERED: Midazolam HCl 2 mg/2 ml Vial ONE ×2 (10:18→10:43)
[2024-08-25] MEDS ORDERED: fentaNYL 50 mcg/mL 1 mL Vial ONE ×3 (10:18→10:42)
== END 2024-08-25 13:20 | disposition home or self-care (01) ==
LOC: SPEC 07:18
PROVIDERS: ATTEND Urology
PROC: 0T25X0Z Change Drainage Device in Kidney, External Approach (ICD-10-PCS; principal; 2024-08-25)
DX: N13.5 Crossing vessel and stricture of ureter without hydronephrosis (principal); C61 Malignant neoplasm of prostate; F17.200 Nicotine dependence, unspecified, uncomplicated; Z95.1 Presence of aortocoronary bypass graft; Z88.1 Allergy status to other antibiotic agents
CPT/HCPCS: 50434; 50436; 74485; 85025; 85610; 85730; 87077; 87086; 87186; C1725 ×3; C1769 ×3; C1887; C1894; J0696; J2250; J3010; J7030; Q9967; 99152; 99153

== ENCOUNTER 2024-09-11 11:58 | Day surgery (SDC) | payer MEDICARE | END 2024-09-11 12:30 | disposition home or self-care (01) | LOC: SDC 11:58 | PROVIDERS: ATTEND Urology | DX: N13.5 Crossing vessel and stricture of ureter without hydronephrosis (principal) | CPT/HCPCS: 99211 ==

== ENCOUNTER 2024-10-13 08:08 | Day surgery (SDC) | payer MEDICARE ==
[2024-10-13] MEDS ORDERED: Sodium Bicarbonate 2.5 MEQ/5 ML SDV ONE (09:28)
[2024-10-13] MEDS ORDERED: Lidocaine 1% PF 5 ML VIAL ONE (09:28)
[2024-10-13] MEDS ORDERED: Sodium Chloride 0.9% 500 ML ONE (09:29)
[2024-10-13] MEDS ORDERED: Iopamidol 30 ML ONE (09:29)
[2024-10-13] MEDS ORDERED: cefTRIAXone\\ROCEPHIN 1 GM in Sodium Chloride 0.9% 100 ML IVPB SCH (09:45)
== END 2024-10-13 12:00 | disposition home or self-care (01) ==
LOC: SPEC 08:08
PROVIDERS: ATTEND Urology
PROC: 0T25X0Z Change Drainage Device in Kidney, External Approach (ICD-10-PCS; principal; 2024-10-13)
DX: N13.1 Hydronephrosis with ureteral stricture, not elsewhere classified (principal); Z88.8 Allergy status to other drugs, medicaments and biological substances
CPT/HCPCS: 50435; 75984; C1729 ×2; C1769 ×2; J0696; J7030; Q9967; J3010

== ENCOUNTER 2025-05-04 07:38 | Emergency (ER) | payer MEDICARE ==
[2025-05-04] MEDS ORDERED: Acetaminophen 500 MG TAB ONE (08:38)
[2025-05-04 09:07] LABS: #Basophils Less than 0.03 10x3/uL (0.0-0.2); #Eosinophils 0.14 10x3/uL (0.0-0.7); #Monocytes 0.40 10x3/uL (0.11-0.59); #Neutrophils 2.72 10x3/uL (1.40-6.50); %Basophils 0.4 % (0.0-1.0); %Eosinophils 3.1 % (0.0-10.0); %Lymphocytes 26.4 % (21.0-51.0); %Monocytes 8.9 % (0.0-10.0); %Neutrophils 61.0 % (42.0-75.0); Hematocrit 36.5 % (42.0-52.0); Hemoglobin 11.4 g/dL (14.0-18.0); Mean Corpuscular Hemoglobin 29.2 pg (27.0-31.0); Mean Corpuscular Volume 93.4 fL (78.0-98.0); Platelet Count 263 10x3/uL (130-400); Red Blood Cell (RBC) Count 3.91 mill/uL (4.70-6.10); White Blood Cell (WBC) Count 4.47 10x3/uL (4.8-10.8)
[2025-05-04 09:11] LABS: Bacteria/HPF 2+ HPF (None Seen); CAUTI Indications for Culture Pelvic or flank pain; Glucose, Urine (Dipstick) Normal (Negative); Leukocyte 500 Leu/uL (Negative); Protein, Urine (Dipstick) 70 mg/dL (Neg-Trace); RBC/HPF Greater than 50 HPF (0-3); Specific Gravity, Urine 1.017 (1.002-1.036); WBC/HPF Greater than 50 HPF (0-3)
[2025-05-04 09:13] LABS: Urine Culture Reflex Yes Yes
[2025-05-04 09:23] LABS: ALT (SGPT) 9 U/L (Less than 45); AST (SGOT) 23 U/L (11-34); Albumin 3.5 g/dL (3.1-4.5); Alkaline Phosphatase 59 U/L (40-110); Anion Gap 12 mmol/L (10-20); BUN (Urea Nitrogen) 19 mg/dL (8.4-25.7); Bilirubin, Total 0.2 mg/dL (0.3-1.2); Calc. Creatinine Clearance 0 mL/min (70-130); Calcium 9.0 mg/dL (7.8-10.44); Carbon Dioxide 27 mmol/L (23-31); Chloride 108 mmol/L (98-107); Globulin 3.6 g/dL (2.4-3.5); Glucose 107 mg/dL (80-115); Potassium 3.6 mmol/L (3.5-5.1); Sodium 143 mmol/L (136-145)
[2025-05-04] MEDS ORDERED: cefTRIAXone (ROCEPHIN) 2 GM VIAL ONE (10:14)
[2025-05-04] MEDS ORDERED: Iopamidol-370 76% 500 ML MDV (1 ML CHARGE) ONE (12:45)
== END 2025-05-04 10:25 | disposition home or self-care (01) ==
LOC: ERS 07:38
DX: R07.81 Pleurodynia (principal); N39.0 Urinary tract infection, site not specified; I13.0 Hypertensive heart and chronic kidney disease with heart failure and stage 1 through stage 4 chronic kidney disease, or unspecified chronic kidney disease; N18.9 Chronic kidney disease, unspecified; I50.9 Heart failure, unspecified; I48.91 Unspecified atrial fibrillation; F17.200 Nicotine dependence, unspecified, uncomplicated; E78.5 Hyperlipidemia, unspecified; I25.10 Atherosclerotic heart disease of native coronary artery without angina pectoris; W10.9XXA Fall (on) (from) unspecified stairs and steps, initial encounter; Y93.01 Activity, walking, marching and hiking; Y92.039 Unspecified place in apartment as the place of occurrence of the external cause; Z79.01 Long term (current) use of anticoagulants; Z79.82 Long term (current) use of aspirin; Z79.899 Other long term (current) drug therapy
CPT/HCPCS: 71260; 74177; 80053; 81001; 85025; 87077; 87086; J0696; Q9967; 87186; 96374

== ENCOUNTER 2025-06-25 09:09 | Day surgery (SDC) | payer MEDICARE ==
[2025-06-25] MEDS ORDERED: Lidocaine 1% w/Epinephrine 1:100K 20 ML VIAL ONE (09:22)
[2025-06-25] MEDS ORDERED: Sodium Bicarbonate 2.5 MEQ/5 ML SDV ONE ×2 (09:22→12:07)
[2025-06-25] MEDS ORDERED: Iopamidol 100 ML FS ONE ×2 (09:22→12:07)
[2025-06-25] MEDS ORDERED: cefTRIAXone\\ROCEPHIN 1 GM in Sodium Chloride 0.9% 100 ML IVPB SCH (11:00)
[2025-06-25] MEDS ORDERED: Metoprolol Tartrate 5 MG (5 mL) VIAL ONE (11:30)
[2025-06-25] MEDS ORDERED: Ondansetron PF 4 MG/2 ML Vial ONE (11:30)
[2025-06-25] MEDS ORDERED: diphenhydrAMINE 50 MG/ML VIAL ONE (11:32)
[2025-06-25] MEDS ORDERED: hydrALAZINE 20 MG/ML VIAL ONE (11:32)
[2025-06-25] MEDS ORDERED: Carvedilol 6.25 MG TAB PO SCH (12:00)
[2025-06-25] MEDS ORDERED: Amiodarone 200 MG TAB PO SCH (12:00)
[2025-06-25] MEDS ORDERED: Sacubitril 24MG/Valsartan 26 MG TAB PO SCH (12:00)
[2025-06-25] MEDS ORDERED: Acetaminophen 500 MG TAB ONE (16:12)
== END 2025-06-25 16:35 | disposition home or self-care (01) ==
LOC: SPEC 09:09
PROVIDERS: ATTEND Urology
PROC: 0T25X0Z Change Drainage Device in Kidney, External Approach (ICD-10-PCS; principal; 2025-06-25)
DX: N13.5 Crossing vessel and stricture of ureter without hydronephrosis (principal); N35.919 Unspecified urethral stricture, male, unspecified site; Z88.1 Allergy status to other antibiotic agents
CPT/HCPCS: 36000; 50693; 50706; C1725 ×2; C1769 ×2; J0696; J2250; J3010; J7030; Q9967; 99152; 99153; J0360; J1200; J2405